=== PATIENT | female | born 1975 ===

== ENCOUNTER 2018-09-24 08:47 | Observation (INO) | payer BC ==
[2018-09-20 15:25] VITALS: BMI 31.4
[2018-09-24 09:38] LABS: BASO % 0.1 % (0.0-2.0); EOS % 0.1 % (0.0-4.0); HEMOGLOBIN 9.5 g/dL (12.0-16.0); LYMPH # 1.5 K/uL (1.0-4.3); MEAN CELL VOLUME 81.3 fl (81.0-99.0); MEAN CORPUSCULAR HEMOGLOBIN 26.1 pg (27.0-31.0); MEAN CORPUSCULAR HGB CONC 32.1 g/dL (33.0-37.0); MEAN PLATELET VOLUME 8.2 fl (7.2-11.7); MONO # 0.6 K/uL (0.0-0.8); MONO % 7.3 % (0.0-10.0); NEUT # 5.9 K/uL (1.8-7.0); NEUT % 73.5 % (50.0-75.0); NRBC % 0.1 % (0.0-0.0); RBC 3.63 Mil/uL (3.80-5.20); RED CELL DISTRIBUTION WIDTH 19.8 % (11.5-14.5)
[2018-09-24] MEDS ORDERED: Midazolam 2 MG/2 ML VIAL ONE (10:01)
[2018-09-24] MEDS ORDERED: Propofol 10 mg/ml Inj (20 ML) ONE (10:01)
[2018-09-24] MEDS ORDERED: Rocuronium 10 mg/ml (5 ml) ONE ×3 (10:02→12:36)
[2018-09-24] MEDS ORDERED: Lactated Ringer's 1,000 ML IV ONE ×2 (10:03→10:30)
[2018-09-24] MEDS ORDERED: Lidocaine 2% MPF (5 ml) Inj ONE (10:05)
[2018-09-24] MEDS ORDERED: Bupivacaine 0.5% Inj(30mL) ONE (10:18)
[2018-09-24 10:34] LABS: BLOOD UREA NITROGEN 13 mg/dl (7-17); CALCIUM 9.3 mg/dL (8.4-10.2); GFR NON-AFRICAN AMERICAN > 60
[2018-09-24] MEDS ORDERED: Lactated Ringer's 500 ML IV ONE (12:18)
[2018-09-24] MEDS ORDERED: Dexamethasone 4 mg/1 ml ONE (13:03)
[2018-09-24] MEDS ORDERED: Lactated Ringer's 1,000 ML IV SCH (13:30)
[2018-09-24] MEDS: HYDROmorphone 0.5 mg/0.5 ml ISec IVP PRN ×2 (13:40→13:55)
[2018-09-24] MEDS: Lactated Ringer's 1,000 ML IV SCH (22:15)
--- NOTE | 2018-09-24 23:46 | OP ---
PROCEDURE DATE: 09/24/2018 PREOPERATIVE DIAGNOSES: Pelvic pain and pressure, fibroids, menorrhagia. POSTOPERATIVE DIAGNOSES: Pelvic pain and pressure, fibroids, menorrhagia. OPERATION PERFORMED: Robotic-assisted hysterectomy, cystoscopy with stent placement. SURGEON: Emerald aSntamaria MD RUBBER PRESS TENDER: Miracle Arreaga MD. She was helpful in creating exposure, obtaining hemostasis, extraction of the specimen, and closure of the patient. The procedure would not have been possible without her assistance. ANESTHESIA: General. ANESTHESIA ADMINISTERED BY: Dr. Covarrubias. ESTIMATED BLOOD LOSS: 150 mL. The patient put out approximately 1400 mL of urine. The patient received approximately 2 liters of D5 LR intraoperatively. OPERATIVE FINDINGS: Large 14-week size uterus, normal ovaries, previous tubal ligation have been performed. COMPLICATIONS: There were no complications. DESCRIPTION OF PROCEDURE: After informed consent was obtained, the patient was taken to the operating room where she was given general anesthesia. She was then prepped and draped in the normal sterile fashion. Attention was then turned to the vagina where the urethra was identified. Cystoscope was inserted. The bladder was surveyed. We identified the left ureter. We stented it with a 5-Ecuadorean catheter, injecting 5 mL of ICG green. Similar procedure was performed on the left. The cystoscope was then removed from the bladder. Attention was turned to the vagina. A weighted speculum was inserted. The anterior lip of the cervix was identified and grasped with a single-tooth tenaculum. Cervix was gently dilated, and a VCare uterine manipulator was inserted into the uterine cavity as a means to manipulate the uterus. Attention was then turned to the Feldman's point where a 5 mm incision was made. The Veress needle was introduced into the abdominal cavity and placement was confirmed with a fluid-filled syringe. The abdomen was then insufflated to 20 mmHg. The Veress needle was removed and a 5 mm port was introduced to the abdominal cavity and placement was confirmed with 5 mm scope. The abdomen was surveyed. Adhesions were noted in the umbilical region. Attention was then turned to the 5 cm superior to the left anterior iliac crest. Marcaine was infused, and 8 mm Robotic port was introduced into the abdominal cavity in direct visualization. Laparoscopic scissor was then inserted into the abdomen. The umbilical adhesions were lysed and everything was noted to be hemostatic. Attention was then turned to the right side of the abdomen where proximally 5 cm superior to the right anterior iliac crest, Marcaine was infused and 8 mm robotic port was introduced into the abdominal cavity under direct visualization. Approximately 3 cm superior to the umbilicus, an 8 mm incision was made, and a robotic port was introduced into the abdominal cavity under direct visualization. Approximately 10 cm right lateral to the umbilicus, Marcaine was infused and 8 mm incision was made and an additional robotic port was introduced into the abdominal cavity. The patent was then placed in steep Trendelenburg, the table was lowered. The instruments used for the surgery were PK dissector, Alpesh Suture Cut, scissors, and ProGrasp. The robot was brought along the patient's side and docked without complication. I then broke scrub and proceeded to the surgical console. Attention was then first to the left utero-ovarian ligament. It was serially coagulated, and transected with the scissor. Attention was then turned to the fallopian tube which in similar fashion was serially coagulated and transected with the scissor. The round ligament was then identified and serially coagulated and transected with the scissors. The vesicouterine peritoneum was then undermined with the PK dissector and carried down to the level of VCare cup anteriorly. The bladder was mobilized downward. Attention was then turned to the posterior aspect of the uterus. The peritoneum was undermined and transected with a scissor down to the level of the VCare cup posteriorly. The uterine artery was then skeletonized, then serially coagulated at the level of the VCare cup. Firefly technology was used. The ureter was identified and clearly out of the operative filed. Attention was then turned to the right side of the abdomen which in similar fashion, the utero-ovarian ligament was then identified, serially coagulated, and transected with the scissor. The fallopian tube was then identified, serially coagulated, and transected with the scissor. Then we approached the round ligament which in similar fashion was serially coagulated and transected with the scissor. The vesicouterine peritoneum was then undermined down to the level of the Vcare cup and transected with the scissor. We then performed a similar procedure posteriorly. The uterine arteries were then skeletonized on the right, the Firefly technology was activated. The ureter was identified. The vascular bundle was then serially coagulated, then we transected with the scissor at the level of the Vcare cup. The colpotomy was then made with the hot rohit with the scissors in a circumferential fashion. The cervix and uterus were amputated from the vagina. The specimen was then delivered vaginally. The fallopian tubes were transected and extracted vaginally. The cuff was closed with 2-0 on a barbed suture. The abdomen was then copiously irrigated. The irrigant was removed with a suction device and erythema was noted to be hemostatic. All instruments were then removed from the abdomen. The robot was removed from the patient. The abdominal incisions were repaired with 0 Vicryl with 3-0 Biosyn and the skin was closed with Dermabond. A cystoscope was performed. Dome of the bladder was noted to be intact. No foreign body or suture material was identified, and there was bilateral clear efflux of urine. Emerald Santamaria MD
[2018-09-25 05:05] VITALS: O2SAT 100
[2018-09-25 05:39] LABS: HEMOGLOBIN 8.4 g/dL (12.0-16.0); MEAN CELL VOLUME 82.8 fl (81.0-99.0); MEAN CORPUSCULAR HEMOGLOBIN 26.1 pg (27.0-31.0); MEAN CORPUSCULAR HGB CONC 31.6 g/dL (33.0-37.0); RBC 3.22 Mil/uL (3.80-5.20); RED CELL DISTRIBUTION WIDTH 20.8 % (11.5-14.5)
[2018-09-25] MEDS: Lactated Ringer's 1,000 ML IV SCH (05:46)
--- NOTE | 2018-09-25 08:37 | CP.PCM.DIS ---
Provider - Provider Date of Admission: 09/24/18 13:41 Attending physician: Emerald Santamaria MD Primary care physician: Leon Frias MD Time Spent in preparation of Discharge (in minutes): 10 Diagnosis - Discharge Diagnosis (1) Pelvic pain Status: Resolved (2) Fibroid, uterine Status: Resolved (3) Menorrhagia Status: Resolved Hospital Course - Lab Results Lab Results: Most Recent Lab Values WBC 9.0 K/uL (4.8-10.8) 09/25/18 04:00 RBC 3.22 Mil/uL (3.80-5.20) L 09/25/18 04:00 Hgb 8.4 g/dL (12.0-16.0) L 09/25/18 04:00 Hct 26.7 % (34.0-47.0) L 09/25/18 04:00 MCV 82.8 fl (81.0-99.0) 09/25/18 04:00 MCH 26.1 pg (27.0-31.0) L 09/25/18 04:00 MCHC 31.6 g/dL (33.0-37.0) L 09/25/18 04:00 RDW 20.8 % (11.5-14.5) H 09/25/18 04:00 Plt Count 205 K/uL (130-400) 09/25/18 04:00 MPV 8.2 fl (7.2-11.7) 09/24/18 09:08 Neut % (Auto) 73.5 % (50.0-75.0) 09/24/18 09:08 Lymph % (Auto) 19.0 % (20.0-40.0) L 09/24/18 09:08 Vermillion % (Auto) 7.3 % (0.0-10.0) 09/24/18 09:08 Eos % (Auto) 0.1 % (0.0-4.0) 09/24/18 09:08 Baso % (Auto) 0.1 % (0.0-2.0) 09/24/18 09:08 Neut # (Auto) 5.9 K/uL (1.8-7.0) 09/24/18 09:08 Lymph # (Auto) 1.5 K/uL (1.0-4.3) 09/24/18 09:08 Vermillion # (Auto) 0.6 K/uL (0.0-0.8) 09/24/18 09:08 Eos # (Auto) 0.0 K/uL (0.0-0.7) 09/24/18 09:08 Baso # (Auto) 0.0 K/uL (0.0-0.2) 09/24/18 09:08 Sodium 138 mmol/l (132-148) 09/24/18 09:08 Potassium 4.2 MMOL/L (3.6-5.0) 09/24/18 09:08 Chloride 98 mmol/L (98-107) 09/24/18 09:08 Carbon Dioxide 29 mmol/L (22-30) 09/24/18 09:08 Anion Gap 15 (10-20) 09/24/18 09:08 BUN 13 mg/dl (7-17) 09/24/18 09:08 Creatinine 0.5 mg/dl (0.7-1.2) L 09/24/18 09:08 Est GFR ( Amer) > 60 09/24/18 09:08 Est GFR (Non-Af Amer) > 60 09/24/18 09:08 Random Glucose 96 mg/dL (65-105) 09/24/18 09:08 Calcium 9.3 mg/dL (8.4-10.2) 09/24/18 09:08 Blood Type B POSITIVE 09/24/18 09:10 Antibody Screen Negative 09/24/18 09:10 BBK History Checked Patient has bt 09/24/18 09:10 - Hospital Course Hospital Course: She had robotic assisted hysterectomy/cystoscopy/stent placement Discharge Exam - Head Exam Head Exam: NORMAL INSPECTION - Respiratory Exam Respiratory Exam: NORMAL BREATHING PATTERN, UNREMARKABLE - Cardiovascular Exam Cardiovascular Exam: REGULAR RHYTHM - GI/Abdominal Exam GI & Abdominal Exam: Normal Bowel Sounds, Soft. absent: Tenderness Discharge Plan - Follow Up Plan Condition: GOOD Disposition: HOME/ ROUTINE Referrals: Leon Frias MD [Primary Care Provider] -
[2018-09-25 10:51] VITALS: BP 117/66; PULSE 99; RESP 100; TEMP 99.1
== END 2018-09-25 12:45 | disposition home or self-care (01) ==
LOC: H.OPSURG 08:47 → H.PEDS 13:41
PROVIDERS: ADMIT Obstetrics & Gynecology Gynecology; ATTEND Obstetrics & Gynecology Gynecology
DX: D25.9 Leiomyoma of uterus, unspecified (principal); N92.0 Excessive and frequent menstruation with regular cycle; Z98.51 Tubal ligation status; K66.0 Peritoneal adhesions (postprocedural) (postinfection)
CPT/HCPCS: 36415; 52332; 58571; 80048; 85025; 85027; 86850; 86900; 88307; C1729; G0378; J0690; J1100; J1170; J1885; J2250; J2405; J2704; J2765; J3010; J7120; S2900